=== PATIENT | female | born 1950 | race American Indian/Alaskan Native ===

== ENCOUNTER 2018-04-19 08:02 | Day surgery (SDC) | payer MEDICARE, OTHER ==
[2018-04-18 10:53] VITALS: BMI 22.8
[2018-04-19] MEDS ORDERED: Propofol 10 mg/ml Inj (20 ML) ONE ×3 (09:58→10:19)
[2018-04-19] MEDS ORDERED: Midazolam 2 MG/2 ML VIAL ONE (10:14)
[2018-04-19] MEDS ORDERED: ePHEDrine 50 mg/ml Inj ONE (10:43)
[2018-04-19 10:58] VITALS: TEMP 97
[2018-04-19 11:04] VITALS: O2SAT 100
[2018-04-19 12:40] VITALS: BP 128/83; PULSE 65; RESP 18
== END 2018-04-19 12:35 | disposition home or self-care (01) ==
LOC: C.ENDO 08:02
PROVIDERS: ATTEND Internal Medicine Gastroenterology
DX: Z12.11 Encounter for screening for malignant neoplasm of colon (principal); K21.9 Gastro-esophageal reflux disease without esophagitis; K64.1 Second degree hemorrhoids; K57.30 Diverticulosis of large intestine without perforation or abscess without bleeding; R12 Heartburn; K20.9 Esophagitis, unspecified; K44.9 Diaphragmatic hernia without obstruction or gangrene; D12.0 Benign neoplasm of cecum

== ENCOUNTER 2018-05-19 13:44 | Emergency (ER) | payer MEDICARE, OTHER ==
[2018-05-19 13:44] VITALS: BMI 22.8
[2018-05-19 14:01] VITALS: O2SAT 100
--- NOTE | 2018-05-19 14:41 | C.PDOC ---
History Of Present Illness 67 year old female patient presents to the ER with c/o right shoulder pain for x2 weeks. Patient reports she took Tylenol with no relief. Patient was seen by PMD and plan to go see a PT. Patient denies weakness, numbness, tingling and neck pain. Time Seen by Provider: 05/19/18 14:04 Chief Complaint (Nursing): Upper Extremity Problem/Injury History Per: Patient History/Exam Limitations: no limitations Onset/Duration Of Symptoms: Days (x2 weeks) Current Symptoms Are (Timing): Still Present Exacerbating Factor(s): Movement Past Medical History Reviewed: Historical Data, Nursing Documentation, Vital Signs Vital Signs: Last Vital Signs Temp 98.2 F 05/19/18 13:59 Pulse 75 05/19/18 13:59 Resp 18 05/19/18 13:59 BP 142/82 05/19/18 13:59 Pulse Ox 100 05/19/18 13:59 - Medical History PMH: Gastritis, HTN, Hypercholesterolemia Surgical History: Endoscopy Family History: States: No Known Family Hx - Social History Hx Alcohol Use: No Hx Substance Use: No - Immunization History Hx Tetanus Toxoid Vaccination: No Hx Influenza Vaccination: Yes Review Of Systems Musculoskeletal: Positive for: Shoulder Pain (right). Negative for: Neck Pain Neurological: Negative for: Weakness, Numbness, Other (tingling ) Physical Exam - Physical Exam Appears: Well, Non-toxic, No Acute Distress Skin: Normal Color, Warm, Dry Head: Normacephalic Eye(s): bilateral: Normal Inspection, EOMI Neck: Normal ROM, Trachea Midline, No Midline Cervical Tenderness, No Paracervical Tenderness, Supple Extremity: Normal ROM (x4; abduction of shoulder without pain ), Tenderness (mild trapezius tenderness; mild shoulder tenderness), No Deformity, No Swelling Pulses: Left Brachial: Normal, Right Brachial: Normal, Left Radial: Normal, Right Radial: Normal Neurological/Psych: Oriented x3, Normal Speech, Normal Motor, Normal Sensation, Normal Reflexes ED Course And Treatment O2 Sat by Pulse Oximetry: 100 (RA) Pulse Ox Interpretation: Normal - Other Rad right shoulder X-Ray: Read By Radiologist Interpretation: Impression: Degenerative changes. If pain persists, consider MRI. Progress Note: Impression: right shoulder pain. Plans: -- toradol. -- XR right shoulder Medical Decision Making Medical Decision Making: no fx noted on xray. d/c home with pmd f/u Disposition Counseled Patient/Family Regarding: Studies Performed, Diagnosis, Need For Followup - Disposition Disposition: HOME/ ROUTINE Disposition Time: 15:06 Condition: GOOD Additional Instructions: Talke Tylenol as prescribed. Follow up with your medical doctor- recommend physical therapy. Tylenol for pain. 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 - Scribe Statement The provider has reviewed the documentation as recorded by the Amanda Velazquez Do All medical record entries made by the [employer] were at my direction and personally dictated by me. I have reviewed the chart and agree that the record accurately reflects my personal performance of the history, physical exam, medical decision making, and the department course for this patient. I have also personally directed, reviewed, and agree with the discharge instructions and disposition.
[2018-05-19 15:18] VITALS: BP 132/83; PULSE 63; RESP 17; TEMP 98.4
--- NOTE | 2018-05-19 15:21 | RAD ---
Right shoulder three views HISTORY: Shoulder pain. Comparison: None available. FINDINGS: Moderate narrowing of the glenohumeral and acromioclavicular joint spaces. No evidence of acute displaced fracture or dislocation. Impression: Degenerative changes. If pain persists, consider MRI.
== END 2018-05-19 15:18 | disposition home or self-care (01) ==
LOC: C.ER 13:44
DX: M25.511 Pain in right shoulder (principal)
CPT/HCPCS: 73030; 96372; 99284; J1885